=== PATIENT | male | born 1980 | race Caucasian/White ===

== ENCOUNTER 2017-08-01 06:50 | Emergency (ER) | payer OTHER ==
[~2017-08-01] VITALS: Ht 188 cm; Wt 124.0 kg
[2017-08-01 07:01] VITALS: Ht 188 cm; Wt 124.0 kg
[2017-08-01 07:24] VITALS: BP 149/97
== END 2017-08-01 07:24 | disposition home or self-care (01) ==
LOC: ED 06:50
DX: G89.29 Other chronic pain (principal); M25.511 Pain in right shoulder; E11.9 Type 2 diabetes mellitus without complications

== ENCOUNTER 2018-08-15 06:58 | Emergency (ER) | payer OTHER ==
[~2018-08-15] VITALS: Ht 185.4 cm; Wt 120.7 kg
[2018-08-15 07:01] VITALS: BP 131/91; Ht 185.4 cm; Wt 120.7 kg
== END 2018-08-15 07:38 | disposition home or self-care (01) ==
LOC: ED 06:58
DX: H10.31 Unspecified acute conjunctivitis, right eye (principal); E11.9 Type 2 diabetes mellitus without complications

== ENCOUNTER 2018-10-24 09:59 | Emergency (ER) | payer OTHER ==
[~2018-10-24] VITALS: Ht 188 cm; Wt 120.7 kg
[2018-10-24 10:03] VITALS: Ht 188 cm; Wt 120.7 kg
[2018-10-24 10:56] VITALS: BP 144/93
== END 2018-10-24 10:56 | disposition home or self-care (01) ==
LOC: ED 09:59
DX: M54.5 Low back pain (principal); E11.9 Type 2 diabetes mellitus without complications

== ENCOUNTER 2018-11-21 17:32 | Emergency (ER) | payer OTHER ==
[~2018-11-21] VITALS: Ht 185.4 cm; Wt 119.3 kg
[2018-11-21 17:37] VITALS: BP 143/85; Ht 185.4 cm; Wt 119.3 kg
== END 2018-11-21 19:50 | disposition left against medical advice (07) ==
LOC: ED 17:32
DX: Z53.21 Procedure and treatment not carried out due to patient leaving prior to being seen by health care provider (principal)

== ENCOUNTER 2018-12-12 04:13 | Emergency (ER) | payer OTHER ==
[~2018-12-12] VITALS: Ht 185.4 cm; Wt 120.7 kg
[2018-12-12 04:28] VITALS: Ht 185.4 cm; Wt 120.7 kg
[2018-12-12 05:37] VITALS: BP 122/86
== END 2018-12-12 05:37 | disposition home or self-care (01) ==
LOC: ED 04:13
DX: S60.041A Contusion of right ring finger without damage to nail, initial encounter (principal); E11.9 Type 2 diabetes mellitus without complications; W26.8XXA Contact with other sharp object(s), not elsewhere classified, initial encounter; Y93.89 Activity, other specified; Y92.89 Other specified places as the place of occurrence of the external cause; Y99.8 Other external cause status

== ENCOUNTER 2019-08-18 06:03 | Emergency (ER) | payer OTHER ==
[~2019-08-18] VITALS: Ht 182.9 cm; Wt 122.0 kg
[2019-08-18 06:12] VITALS: Ht 182.9 cm; Wt 122.0 kg
[2019-08-18 06:26] VITALS: BP 152/95
== END 2019-08-18 06:26 | disposition home or self-care (01) ==
LOC: ED 06:03
DX: H10.12 Acute atopic conjunctivitis, left eye (principal); E11.9 Type 2 diabetes mellitus without complications

== ENCOUNTER 2019-12-01 12:33 | Emergency (ER) | payer OTHER, SELFPAY ==
[~2019-12-01] VITALS: Ht 185.4 cm; Wt 117.9 kg
[2019-12-01 12:35] VITALS: Ht 185.4 cm; Wt 117.9 kg
[2019-12-01 14:03] VITALS: BP 135/74
== END 2019-12-01 14:03 | disposition home or self-care (01) ==
LOC: ED 12:33
DX: U07.1 COVID-19 (principal); E11.9 Type 2 diabetes mellitus without complications
CPT/HCPCS: U0003-CS

== ENCOUNTER 2019-12-24 07:50 | Emergency (ER) | payer OTHER, SELFPAY ==
[~2019-12-24] VITALS: Ht 185.4 cm; Wt 117.9 kg
[2019-12-24 07:52] VITALS: BP 148/97; Ht 185.4 cm; Wt 117.9 kg
== END 2019-12-24 08:33 | disposition home or self-care (01) ==
LOC: ED 07:50
DX: R51.9 Headache, unspecified (principal); E11.9 Type 2 diabetes mellitus without complications; Z02.79 Encounter for issue of other medical certificate